=== PATIENT | male | born 1955 | race Hispanic/Latino ===

== ENCOUNTER 2018-01-25 06:59 | Day surgery (SDC) | payer BC ==
[2018-01-25 07:49] VITALS: BMI 42.5
[2018-01-25] MEDS ORDERED: Propofol 10 mg/ml Inj (20 ML) ONE (08:37)
[2018-01-25 09:21] VITALS: O2SAT 99
[2018-01-25] MEDS ORDERED: Sodium Chloride 0.9% 1,000 ML IV SCH (09:30)
[2018-01-25 09:59] VITALS: BP 156/87; PULSE 73; RESP 18; TEMP 98.2
== END 2018-01-25 10:20 | disposition home or self-care (01) ==
LOC: ENDO 06:59
PROVIDERS: ATTEND Specialist
DX: Z12.11 Encounter for screening for malignant neoplasm of colon (principal); D12.2 Benign neoplasm of ascending colon; D12.3 Benign neoplasm of transverse colon; K63.5 Polyp of colon; K57.30 Diverticulosis of large intestine without perforation or abscess without bleeding; K64.8 Other hemorrhoids
CPT/HCPCS: 45380; 45385; 88305; J2704; J3010; J7030